=== PATIENT | male | born 1950 | race Caucasian/White ===

== ENCOUNTER 2016-11-02 10:37 | Emergency (ER) | payer MEDICAID ==
[2016-11-02 11:05] LABS: COLOR YELLOW; LEUKOCYTE ESTERASE,URINE NEGATIVE (NEGATIVE); NITRITE,URINE NEGATIVE (NEGATIVE)
--- NOTE | 2016-11-02 11:13 | EDPHY ---
H & P Stated Complaint: Dysuria>1wk;also has swelling/pain R thumb (no injury) Time Seen by Provider: 11/02/16 11:10 HPI/ROS: CHIEF COMPLAINT: Difficult urination HISTORY OF PRESENT ILLNESS: This patient is a 66 year old male with history of kidney stones complaining of difficult, painful urination worsening over the last week. He does have an enlarged prostate. His current discomfort is different than his prior kidney stone symptoms. He has been waking up at night and finds it extremely difficult to urinate. During the day when he is moving around, he can urinate better, but still has difficulty. He endorses pain in his penis and in his lower left abdomen. He describes this pain as feeling like "broken glass" in his lower left side. He also has left-sided low back pain, and it is difficult to sit too long in one position. Two days ago, he had some nausea and vomiting, but this has since resolved. Ne denies fever, chest pain, shortness of breath, or other associated symptoms. The patient has also been unable to move or straighten his right thumb for the last two days. He endorses a sensation of tightness radiating up his arm. He denies any trauma or injury. REVIEW OF SYSTEMS: A 10 point review of systems was performed and is negative with the exception of the elements mentioned in the history of present illness. - Personal History Current Tetanus Diphtheria and Acellular Pertussis (TDAP): Yes - Medical/Surgical History PMH: Kidney stones. Hx Chronic Respiratory Disease: Yes Other PMH: kidney stones - Social History Smoking Status: Current every day smoker Additional Social History: Current tobacco use. - Physical Exam Exam: General Appearance: Alert, no distress Eyes: Pupils equal and round, no conjunctival pallor or injection ENT, Mouth: Mucous membranes moist Neck: Normal inspection Respiratory: Lungs are clear to auscultation Cardiovascular: Regular rate and rhythm Gastrointestinal: Left lower quadrant tenderness. Abdomen is soft. Neurological: A&O, nonfocal, normal gait Skin: Warm and dry, no rash Extremities: Unable to extend thumb at IP joint. Normal flexion. Extremities otherwise nontender, no pedal edema Psychiatric: Mood and affect normal Constitutional: Initial Vital Signs Temperature (C) 36.6 C 11/02/16 10:38 Heart Rate 68 11/02/16 10:38 Respiratory Rate 18 11/02/16 10:38 Blood Pressure 142/80 H 11/02/16 10:38 O2 Sat (%) 96 11/02/16 10:38 O2 Delivery Mode Room Air Allergies/Adverse Reactions: No Known Allergies Allergy (Unverified 11/02/16 10:42) Home Medications: Medication Instructions Recorded Ciprofloxacin [Cipro] 500 mg PO BID #20 tab 11/02/16 Hydrocodone/APAP 5/325 [[place] 1 - 2 tab PO Q4H PRN #10 tab 11/02/16 5/325] Ondansetron Odt [Zofran Odt 4 mg 4 mg PO Q4 PRN #6 tab 11/02/16 (*)] metroNIDAZOLE [Flagyl 500 mg (*)] 500 mg PO BID #20 tab 11/02/16 Medical Decision Making - Diagnostics Imaging Results: Imaging Impressions Abdomen/Pelvis CT 11/02/16 11:21 Impression: 1. Bilateral nonobstructive nephrolithiasis. No evidence for hydronephrosis or definite ureteral calculus. Probable renal cortical cysts bilaterally. Consider ultrasound for further evaluation. 2. Moderate diverticulosis sigmoid colon without definite diverticulitis. 3. Multilevel degenerative change lumbar spine. Results called and discussed with Michaela Son at 1158 hours 02 November 2016. Attention: This CT examination is specifically designed to evaluate patients who are clinically suspected of having acute obstructive uropathy. This examination does not use radiographic contrast, and as such, provides only a limited evaluation of the abdomen, pelvis and retroperitoneum. If there is further clinical suspicion for pathological conditions other than obstructive uropathy, a complete CT evaluation of the abdomen and pelvis utilizing intravenous, oral, and rectal contrast should be considered. Imaging: Discussed imaging studies w/ sintering plant supervisor Radiologist, I viewed and interpreted images myself ED Course/Re-evaluation: 66 year old male presents with one week history of difficulty urinating. He also has been unable to straighten or move his right thumb. Physical exam reveals left lower quadrant tenderness. He is unable to extend thumb at IP joint , but has normal flexion, c/w extensor tendon disruption. Plan for x-ray thumb, CT abdomen/pelvis. The patient declines pain or nausea medication at this time. 12:[address] Amaro, radiologist. CT negative for renal calculus. Left lower diverticulosis noted. CT scan results discussed with the patient. Given leukocytosis, left lower quadrant pain and diverticulosis seen on CT scan, I will treat him for presumed diverticulitis. Cipro and Flagyl given. Hand x-ray is negative for fracture. He will follow up with a hand specialist for further evaluation of his right thumb tendon rupture. Return precautions discussed. The patient is comfortable with this plan. Differential Diagnosis: Differential diagnosis includes though it is not limited to appendicitis, cholecystitis, diverticulitis, pyelonephritis, bowel perforation, small bowel obstruction. - Data Points Laboratory Results: Laboratory Results 11/02/16 11:00 11/02/16 11:00 11/02/16 11/02/16 11/02/16 11:00 11:00 10:58 WBC 10.32 10^3/uL H 10^3/uL (3.80-9.50) RBC 4.28 10^6/uL L 10^6/uL (4.40-6.38) Hgb 14.1 g/dL g/dL (13.7-17.5) Hct 40.4 % % (40.0-51.0) MCV 94.4 fL fL (81.5-99.8) MCH 32.9 pg pg (27.9-34.1) MCHC 34.9 g/dL g/dL (32.4-36.7) RDW 15.1 % % (11.5-15.2) Plt Count 325 10^3/uL 10^3/uL (150-400) MPV 9.9 fL fL (8.7-11.7) Neut % (Auto) 68.9 % % (39.3-74.2) Lymph % (Auto) 23.6 % % (15.0-45.0) [place] % (Auto) 5.6 % % (4.5-13.0) Eos % (Auto) 0.9 % % (0.6-7.6) Baso % (Auto) 0.6 % % (0.3-1.7) Nucleat RBC Rel Count 0.0 % % (0.0-0.2) Absolute Neuts (auto) 7.11 10^3/uL H 10^3/uL (1.70-6.50) Absolute Lymphs (auto) 2.44 10^3/uL 10^3/uL (1.00-3.00) Absolute Monos (auto) 0.58 10^3/uL 10^3/uL (0.30-0.80) Absolute Eos (auto) 0.09 10^3/uL 10^3/uL (0.03-0.40) Absolute Basos (auto) 0.06 10^3/uL 10^3/uL (0.02-0.10) Absolute Nucleated RBC 0.00 10^3/uL 10^3/uL (0-0.01) Immature Gran % 0.4 % % (0.0-1.1) Immature Gran # 0.04 10^3/uL 10^3/uL (0.00-0.10) Platelet Estimate ADEQUATE (ADEQ) Oval Macrocytes 1+ H Sodium 140 mEq/L mEq/L (134-144) Potassium 4.3 mEq/L mEq/L (3.5-5.2) Chloride 104 mEq/L mEq/L (97-110) Carbon Dioxide 23 mEq/l mEq/l (22-31) Anion Gap 13 mEq/L mEq/L (8-16) BUN 10 mg/dL mg/dL (7-23) Creatinine 0.8 mg/dL mg/dL (0.7-1.3) Estimated GFR > 60 Glucose 137 mg/dL H mg/dL (70-100) Calcium 9.5 mg/dL mg/dL (8.5-10.4) Urine Color YELLOW Urine Appearance CLEAR Urine pH 7.0 (5.0-7.5) Ur Specific [place] 1.012 (1.002-1.030) Urine Protein NEGATIVE (NEGATIVE) Urine Ketones NEGATIVE (NEGATIVE) Urine Blood NEGATIVE (NEGATIVE) Urine Nitrate NEGATIVE (NEGATIVE) Urine Bilirubin NEGATIVE (NEGATIVE) Urine Urobilinogen NEGATIVE EU EU (0.2-1.0) Ur Leukocyte Esterase NEGATIVE (NEGATIVE) Urine Glucose NEGATIVE (NEGATIVE) Departure - Departure Disposition: Home, Routine, Self-Care Clinical Impression: Rupture of extensor tendon of finger Diverticulitis Qualifiers: Diverticulitis site: unspecified part of intestinal tract Diverticulitis bleeding: without bleeding Diverticulitis complication: unspecified complication status Qualified Code(s): K57.92 - Diverticulitis of intestine, part unspecified, without perforation or abscess without bleeding Condition: Good Instructions: Diverticulitis (ED), Diverticulitis Diet (ED), Tendon Rupture (ED ) Additional Instructions: 1. Follow up with your primary care provider this week for continued evaluation of your symptoms. 2. Follow up with a hand specialist for further evaluation of your right thumb. We have referred you to our hand specialist tonnage compilation clerk. 3. Take [place] as prescribed as needed for severe pain. You may also take ibuprofen, 600mg every 6-8 hours with food. Do not take acetaminophen (Tylenol) while you are taking [place], as this medication already contains acetaminophen. 4. Take your Cipro and Flagyl as prescribed. It is important to finish your entire course of antibiotics even if you are feeling better. 5. Take Zofran as prescribed as needed for nausea. 6. Return to the Emergency Department for fever, uncontrollable vomiting or diarrhea, worsening pain, inability to urinate, or other worsening of condition. Referrals: NONE *PRIMARY CARE P,. [Primary Care Provider] - As per Instructions Shane Neumann MD [Medical Doctor] - As per Instructions Solange Bower MD [Medical Doctor] - As per Instructions Prescriptions: Ciprofloxacin [Cipro] 500 mg PO BID #20 tab Hydrocodone/APAP 5/325 [[place] 5/325] 1 - 2 tab PO Q4H PRN #10 tab PRN Reason: Pain, Moderate metroNIDAZOLE [Flagyl 500 mg (*)] 500 mg PO BID #20 tab Ondansetron Odt [Zofran Odt 4 mg (*)] 4 mg PO Q4 PRN #6 tab PRN Reason: Nausea Report Scribed for: Michaela Son Report Scribed by: Betty Ferrell Date of Report: 11/02/16 Time of Report: 11:13 Physician Review and Approval Statement: 11/02/16 11:13 Portions of this note were transcribed by a medical lab assistant. I personally performed a history, physical exam, medical decision making, and confirmed accuracy of information the transcribed note.
[2016-11-02 11:30] LABS: % IMMATURE GRANULYOCYTES 0.4 % (0.0-1.1); ABSOLUTE IMMATURE GRANULOCYTES 0.04 10^3/uL (0.00-0.10); ADD DIFF? NO; ADD MORPH? YES; ADD SCAN? NO; ATYPICAL LYMPHOCYTE FLAG 0 (0-99); HEMATOCRIT 40.4 % (40.0-51.0); HEMOGLOBIN 14.1 g/dL (13.7-17.5); LEFT SHIFT FLG 0 (0-99); LIPEMIA HEMOLYSIS FLAG 90 (0-99); MEAN CELL HEMOGLOBIN 32.9 pg (27.9-34.1); MEAN CELL HEMOGLOBIN CONCENTR. 34.9 g/dL (32.4-36.7); MEAN CELL VOLUME 94.4 fL (81.5-99.8); MEAN PLATELET VOLUME 9.9 fL (8.7-11.7); PLATELET CLUMPS FLAG 10 (0-99); PLATELET COUNT 325 10^3/uL (150-400); RED BLOOD CELL COUNT 4.28 10^6/uL (4.40-6.38); RED CELL DISTRIBUTION WIDTH 15.1 % (11.5-15.2)
[2016-11-02 11:32] LABS: FRAGMENT RBC FLAG 180 (0-99)
[2016-11-02 11:42] LABS: CALCIUM 9.5 mg/dL (8.5-10.4); CREATININE 0.8 mg/dL (0.7-1.3); GLOMERULAR FILTRATION RATE > 60; GLUCOSE 137 mg/dL (70-100)
[2016-11-02 11:56] LABS: MACROCYTES 1+; PLATELET ESTIMATE ADEQUATE (ADEQ)
[2016-11-02 11:58] LABS: ANION GAP 13 mEq/L (8-16); CARBON DIOXIDE 23 mEq/l (22-31); CHLORIDE 104 mEq/L (97-110); POTASSIUM 4.3 mEq/L (3.5-5.2); SODIUM 140 mEq/L (134-144)
[2016-11-02 13:13] VITALS: BP 118/62; PULSE 55; RESP 16; TEMP 98.1; O2SAT 95
== END 2016-11-02 13:12 | disposition home or self-care (01) ==
DX: K57.92 Diverticulitis of intestine, part unspecified, without perforation or abscess without bleeding (principal); F17.200 Nicotine dependence, unspecified, uncomplicated; M66.241 Spontaneous rupture of extensor tendons, right hand
CPT/HCPCS: L3807